=== PATIENT | female | born 1970 | race Caucasian/White ===

== ENCOUNTER 2020-06-05 07:10 | Emergency (ER) | payer BC ==
[~2020-06-05] VITALS: Ht 170.2 cm; Wt 88.0 kg
[2020-06-05 07:18] VITALS: BP 152/86; Ht 170.2 cm; Wt 88.0 kg
== END 2020-06-05 07:39 | disposition home or self-care (01) ==
LOC: ED 07:10
DX: L03.032 Cellulitis of left toe (principal); S90.122A Contusion of left lesser toe(s) without damage to nail, initial encounter; W57.XXXA Bitten or stung by nonvenomous insect and other nonvenomous arthropods, initial encounter; Y93.89 Activity, other specified; Y92.89 Other specified places as the place of occurrence of the external cause; Y99.8 Other external cause status